=== PATIENT | male | born 1955 | race Caucasian/White ===

== ENCOUNTER → 2020-07-13 | Outpatient (CLI) | payer BC, MEDICARE ==
--- NOTE | 2020-07-13 17:25 | RAD ---
Chest radiograph 07/13/2020 4:25 PM INDICATION: Chest pain COMPARISON: None available TECHNIQUE: Frontal and lateral views of the chest are provided. FINDINGS: The cardiomediastinal silhouette is within normal limits. There are no pleural effusions. There is no pulmonary vascular congestion. There is no pneumothorax. The lungs are clear. No significant osseous abnormality is identified. IMPRESSION: No acute cardiopulmonary process. Electronically signed by: Arpita Tomas MD (07/13/2020 5:22 PM) [id number]
== END ==
LOC: DXRAD 16:18 → MERGE 16:18
PROVIDERS: ATTEND Physician Assistant
DX: R07.81 Pleurodynia (principal)
CPT/HCPCS: 71046